=== PATIENT | male | born 2000 | race African-American/Black ===

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

== ENCOUNTER 2024-08-11 21:19 | Emergency (ER) | payer SELFPAY ==
[~2024-08-11] VITALS: Ht 132.1 cm; Wt 73.0 kg
[~2024-08-11 21:19] MED LIST changes: +PROAIR HFA108 MCG/AC PO
[2024-08-11] MEDS ORDERED: methylPREDNISolone SODIUM SUCC 125 MG/2 ML SDV IV ONE (21:35)
[2024-08-11] MEDS ORDERED: IPRATROPIUM-Albuterol 0.5MG-2.5MG/3 ML NEB ONE (21:35)
[2024-08-11 21:47] LABS: BASO% 0.7 % (0-3); EOS% 10.1 % (0-8); HEMATOCRIT 44.6 % (39.0-50.0); HEMOGLOBIN 15.3 g/dl (14.0-18.0); IMMATURE GRANULOCYTES 0.1 % (0.0-5.0); LYMPH% 36.1 % (15-41); MEAN CORPUSCULAR HGB 30.7 pG CALC (26.0-32.0); MEAN CORPUSCULAR HGB CONC 34.3 g/dL CAL (32.0-36.0); MONO% 8.9 % (2-13); NEUT# 4.13 thou/uL (1.82-7.42); NEUT% 44.1 % (42-76); RED BLOOD COUNT 4.98 mill/uL (4.70-6.10); RED CELL DISTRI WIDTH 11.3 % (11.5-15.5)
[2024-08-11 21:48] LABS: MEAN CELL VOLUME 89.6 fL CALC (80.0-100.0)
[2024-08-11] MEDS ORDERED: VENTOLIN HFA IN (22:31)
[2024-08-11] MEDS ORDERED: ALBUTEROL SUL0.083 % IN (22:31)
[2024-08-11] MEDS ORDERED: ALBUTEROL SULFATE 8 GM INH IN ONE (22:35)
[2024-08-11 22:39] VITALS: BP 141/96
== END 2024-08-11 23:00 | disposition home or self-care (01) | DRG 203 ==
LOC: ED 21:19
PROVIDERS: Family Medicine
DX: J45.901 Unspecified asthma with (acute) exacerbation (principal); Z20.822 Contact with and (suspected) exposure to COVID-19